=== PATIENT | male | born 1935 ===

== ENCOUNTER 2017-04-12 17:39 | Emergency (ER) | payer OTHER ==
[~2017-04-12] VITALS: Ht 177.8 cm; Wt 108.9 kg
[~2017-04-12 17:39] MED LIST: CRESTOR10 MG; GLIPIZIDE10 MG; OMEPRAZOLE20 MG; TARKA 1/2401 BOTTLE; TRICOR145 MG; ZANTAC 7575 MG
== END 2017-04-12 22:55 | disposition home or self-care (01) ==
LOC: ER 17:39
DX: R42 Dizziness and giddiness (principal)

== ENCOUNTER 2017-08-30 18:09 | Emergency (ER) | payer OTHER ==
[~2017-08-30] VITALS: Ht 177.8 cm; Wt 111.1 kg
== END 2017-08-30 21:34 | disposition home or self-care (01) ==
LOC: ER 18:09
DX: S70.02XA Contusion of left hip, initial encounter (principal); S70.12XA Contusion of left thigh, initial encounter; S09.8XXA Other specified injuries of head, initial encounter; R41.0 Disorientation, unspecified; R53.81 Other malaise; W18.09XA Striking against other object with subsequent fall, initial encounter; Y93.89 Activity, other specified; Y92.018 Other place in single-family (private) house as the place of occurrence of the external cause; Y99.8 Other external cause status